=== PATIENT | male | born 1955 | race African-American/Black ===

== ENCOUNTER → 2016-09-06 | Outpatient (CLI) | payer BC ==
[~2016-09-06] MED LIST: GLUC10007 PO; LOSARTAN PO; ONDA4TAB4 PO; TRIA0.5O
[2016-09-06 15:25] LABS: ISTAT CREATININE 1.3 mg/dl (0.6-1.3); ISTAT IONIZED CALCIUM 1.23 mmol/l (1.12-1.32)
[2016-09-06 15:26] LABS: ISTAT HEMOGLOBIN 13.3 g/dl (14.0-18.0)
--- NOTE | 2016-09-06 16:09 | DIAGNOSTIC IMAGING REPORT ---
ABDOMINAL MRI WITH AND WITHOUT INTRAVENOUS CONTRAST HISTORY: Hepatocellular carcinoma. Follow-up. TECHNIQUE: Multiplanar multisequence MRI of the abdomen was performed both before and after the intravenous administration of 6.9 cc of Gadavist. COMPARISON STUDY: Abdominal MRI 05/24/2016. FINDINGS: No enhancing hepatic lesions. Small focal defect within segment 6 of the liver is likely due to postoperative change. The right kidney is surgically absent. Multiple left renal cysts are again noted. Dominant cyst within the lower pole measures 2.2 cm. Immediately superior to this cyst there is a 1.4 cm T2 hypointense lesion best seen on image 57 of 80 of the postcontrast sequences. This appears to demonstrate enhancement. Therefore, this is concerning for a small renal cell carcinoma. Stable splenic and left hepatic lobe cysts. Normal gallbladder. Pancreas divisum. No pancreatic masses. No retroperitoneal lymphadenopathy. Subtle 10 mm indeterminate lesion within the upper pole of the left kidney remains unchanged. IMPRESSION: 1. No hepatic lesions. 2. The right kidney is surgically absent. No soft tissue masses within the nephrectomy bed. 3. A 1.4 cm T2 hypointense lesion within the lower pole of the left kidney which appears to demonstrate enhancement. Therefore, this is concerning for a small renal cell carcinoma. Consider 3 month follow-up to evaluate for stability. 4. No change in the 1 cm indeterminate lesion within the upper pole of the left kidney. Electronically signed by: Jitendra Duffy M.D. 09/06/2016 4:07 PM Dictated Date/Time: 09/06/2016 3:48 PM
== END | disposition home or self-care (01) ==
LOC: C.MRI 12:45
PROVIDERS: ATTEND Nurse Practitioner
DX: C22.0 Liver cell carcinoma (principal); C64.1 Malignant neoplasm of right kidney, except renal pelvis

== ENCOUNTER → 2017-06-09 | Outpatient (CLI) | payer BC ==
[~2017-06-09] MED LIST changes: +GADOXETATE DISODIUM (NON-WT BASED PROCEDURE) IV PRN
--- NOTE | 2017-06-09 19:42 | DIAGNOSTIC IMAGING REPORT ---
MRI LIVER COMBO CLINICAL HISTORY: Hepatocellular carcinoma. Renal cell carcinoma. COMPARISON STUDY: MRI of the abdomen September 06, 2016. TECHNIQUE: Utilizing a 1.5 Patty magnet and dedicated coil, multiplanar, multiecho imaging of the abdomen was performed pre and postcontrast administration. Post contrast imaging was performed utilizing dynamic enhancement. Injection of 10 cc of Eovist IV was uneventful. FINDINGS: No suspicious hepatic lesions are present. An 8 mm lateral segment hepatic cyst is unchanged. No enhancing hepatic lesions are present. The postoperative appearance of the liver is unchanged. A splenic cyst is unchanged. There is no biliary or pancreatic ductal dilatation. No peripancreatic infiltration. No gallstones are identified. The patient is status post right nephrectomy. The right nephrectomy bed is within normal limits. There is no abdominal ascites. Multiple T2 hyperintense nonenhancing left renal lesions are consistent with cysts. This exam is compromised by motion artifact. However, a 1.3 cm lesion within the upper pole the left kidney shown on axial image 37 of 88 is similar to prior imaging studies. The previously described enhancing lesion within the lower pole of the left kidney is suboptimally assessed on this exam and evaluation for enhancement is difficult on this study. However, this lesion has increased in size and now measures approximately 2 cm. This is suspicious for renal cell carcinoma. This lesion is immediately adjacent to a renal cyst. No additional suspicious renal lesions are present. IMPRESSION: 1. Moderate increase in size of a 2 cm lesion within the lower pole of the left kidney. This lesion is suspicious for renal cell carcinoma, as described above. 2. No hepatic lesions identified. 3. Status post right nephrectomy. No abnormality within the right nephrectomy bed. 4. No significant change in the indeterminate 1.3 cm lesion within the upper pole of the left kidney. Electronically signed by: Lamonte Jacob M.D. 06/09/2017 7:40 PM Dictated Date/Time: 06/09/2017 4:34 PM
== END | disposition home or self-care (01) ==
LOC: C.MRI 14:36
PROVIDERS: ATTEND Internal Medicine Hematology & Oncology
DX: C22.0 Liver cell carcinoma (principal); N28.9 Disorder of kidney and ureter, unspecified; Z90.5 Acquired absence of kidney

== ENCOUNTER 2018-10-23 08:48 | Inpatient (IN) ==
--- NOTE | 2018-10-05 11:02 | Anesthesiology Consultation ---
Date of Service October 05, 2018 Assessment & Plan (1) Encounter for pre-operative examination: Chart Review Chart Review: Acceptable Risk for Surgery and Patient seen in Pre Admission Testing Teaching & Discussion Instructed NPO after midnight before surgery, except medications with 15 cc of water. Medication instructions provided according to the [facility] guidelines. History Surgery Operation Date: 10/23/18 10:20 Proposed Procedures p Left Robotic Assisted Partial Laparoscopic Nephrectomy - Paras Rene MD Height/Weight Height: 5 ft 9 in Weight: 72.2 kg Allergies Allergy/AdvReac Type Severity Reaction Status Date / Time Iodinated Contrast- Oral and Allergy Unknown Hives, Verified 10/05/18 10:20 IV Dye Itchy x1 week after Medications Home Medications Medication Instructions Recorded Confirmed Last Taken amlodipine 10 mg PO QAM 10/05/18 10/05/18 Unknown loratadine [Claritin] 10 mg PO DAILY PRN 10/05/18 10/05/18 Unknown losartan 100 mg PO QAM 10/05/18 10/05/18 Unknown Past Medical History Medical History Cardiac murmur As a teen. No murmur noted on exam at [facility]. History of liver cancer PT HAD SURGERY WITH RESECTION OF SMALL PORTION OF LIVER IN 2013. PT TOOK ORAL CHEMO. Hypertension Kidney mass Previously had on R kidney, s/p R nephrectomy. Now with mass on L kidney. Sleep apnea NO DEVICE -- WAS TOLD NOT SEVERE ENOUGH TO REQUIRE DEVICE Exercise / Class Metabolic Activity 1 > 8 Run/Swim/Ski/Tennis Past Surgical History Surgical History History of arthroscopy RT SHOULDER REPAIR History of colonoscopy History of esophagogastroduodenoscopy (EGD) History of excision of mass From liver, 2013. History of nephrectomy, right Done for R kidney mass--during this surgery, liver cancer discovered. History of tonsillectomy Past Anesthesia History No Hx of Anesthesia Complications and No Family Hx of Anesthesia Complications R nephrectomy 2013 @ [facility]: MAC 3, ETT 8.0. Grade view II. No issues noted on record. History of PONV No Hx of PONV and Hx of Motion Sickness Social History Smoking Status: Current every day smoker tobacco type: cigarettes Smoking cigarettes per day: 1 CIGARETTE PER DAY FOR PAST 7-8 YEARS Do You Dip or Chew Tobacco: No Hx Alcohol Use: Yes alcohol intake frequency: a few times a month Alcohol Intake Frequency Comment: OCC. SOCIAL DRINK Hx Substance Use: No substance use type: does not use Review of Systems Pt denies any recent chest pain, shortness of breath, palpitations, cough, fever. URI a few months ago, has had residual occ mild cough and now with seasonal allergies/congestion. Physical Exam Vital Signs BP: 146/78 P: 71bpm SPO2: 97% RA T: 98.2 F R: 18 ENMT Mouth: + chipped teeth; no dental restorations and no loose teeth Thyromental Distance: > or= 3.5 Finger Breadths (3.5) Mallampati Class: II Mouth / Teeth: 1. Broken/missing Neck normal visual inspection; neck extension not limited Respiratory normal respiratory effort Auscultation: lungs clear to auscultation bilaterally Cardiovascular Rate/Rhythm: regular rate and regular rhythm Heart Sounds: no murmur Vessels: no carotid bruit Extremities: no edema Testing Electrocardiogram Date: 10/05/18 Findings: + NSR @ (77) Possible LAE. Left axis deviation. NSTWA. Chest X-Ray Date: 10/05/18 FINDINGS: Small linear scarlike densities at the left lung base. The lungs are otherwise clear. The heart is normal in size. No pleural effusions. No pneumothorax. IMPRESSION: No acute process. Laboratory Results 10/05/18 11:13 10/05/18 11:13 Blood Type B Positive 10/05/18 11:13 Antibody Screen NEGATIVE 10/05/18 11:13 Urine Color Yellow 10/05/18 11:13 Urine Appearance Clear (Clear) 10/05/18 11:13 Urine pH 6.5 (4.5-7.5) 10/05/18 11:13 Ur Specific Cullen 1.022 (1.000-1.030) 10/05/18 11:13 Urine Protein Negative (Negative) 10/05/18 11:13 Urine Glucose (UA) Negative (Negative) 10/05/18 11:13 Urine Ketones Negative (Negative) 10/05/18 11:13 Urine Nitrite Negative (Negative) 10/05/18 11:13 Ur Leukocyte Esterase Negative (Negative) 10/05/18 11:13 10/05/18 11:13 Urine Culture - Final Urine,Clean Catch No growth - less than 1,000 colonies/mL.
--- NOTE | 2018-10-05 11:03 | PAT Medication Instructions ---
Medication Instructions Date of Service October 05, 2018 Home Medications amlodipine 10 mg PO QAM loratadine [Claritin] 10 mg PO DAILY PRN losartan 100 mg PO QAM DO NOT take the morning of surgery loratadine [Claritin] 10 mg PO DAILY PRN losartan 100 mg PO QAM Take morning of surgery With a small sip of water, OTHERWISE NOTHING TO EAT OR DRINK AFTER MIDNIGHT: amlodipine 10 mg PO QAM Take evening before surgery loratadine [Claritin] 10 mg PO DAILY PRN (if needed) Other Notes If you have any questions please call us at [phone] or [phone] or [phone] or [phone]
[2018-10-05 11:52] LABS: Appearance Urine Clear (Clear); Bilirubin Urine Negative (Negative); Blood Urine Negative (Negative); Color Urine Yellow; Glucose Urine UA Negative (Negative); Ketones Urine Negative (Negative); Leukocyte Esterase Urine Negative (Negative); Nitrite Urine Negative (Negative); Protein Urine Negative (Negative); Specific Gravity Urine 1.022 (1.000-1.030); Urobilinogen Urine Negative (Negative); pH Urine 6.5 (4.5-7.5)
[2018-10-05 11:53] LABS: Basophils # (auto) 0.03 K/uL (0-0.2); Basophils % (auto) 0.7 %; Eosinophils % (auto) 2.5 %; Hemoglobin 14.6 g/dL (14.0-18.0); Lymphocytes # (auto) 1.75 K/uL (1.2-3.4); Lymphocytes % (auto) 42.9 %; Mean Corpuscular Volume 84.5 fL (80-100); Mean Platelet Volume 9.7 fL (7.4-10.4); Monocytes # (auto) 0.48 K/uL (0.11-0.59); Monocytes % (auto) 11.8 %; Neutrophils # (auto) 1.72 K/uL (1.4-6.5); Neutrophils % (auto) 42.1 %; Platelet Count 276 K/uL (130-400); RDW Coefficient of Variation 14.3 % (11.5-14.5); RDW Standard Deviation 44.7 fL (36.4-46.3); Red Blood Count 5.09 M/uL (4.7-6.1); White Blood Count 4.08 K/uL (4.8-10.8)
--- NOTE | 2018-10-05 12:06 | XRay Report ---
XR chest Pre-admission PA/Lat HISTORY: Preop. COMPARISON: Chest 08/31/2013. FINDINGS: Small linear scarlike densities at the left lung base. The lungs are otherwise clear. The h eart is normal in size. No pleural effusions. No pneumothorax. IMPRESSION: No acute process. Electronically signed by: Jitendra Duffy M.D. 10/05/2018 12:05 PM
[2018-10-05 12:23] LABS: BUN Creatinine Ratio 13.6 (10-20); Calcium 9.4 mg/dl (8.5-10.1); Creatinine Clr Calc Pharmacy 52.5 ml/min; Est GFR (African American) 58.9; Est GFR (Non-African American) 50.8; Potassium 5.1 mmol/L (3.5-5.1)
[~2018-10-23 08:48] MED LIST changes: +ACETAMINOPHEN 1000 MG/100 ML IV IV ONE; +ALBUMIN HUMAN 5% 12.5 GM/250 ML VIAL IV ONE; +CEFAZOLIN 2000MG 2,000 MG/15 ML SYR IV SCH; -GADOXETATE DISODIUM (NON-WT BASED PROCEDURE) IV PRN; -GLUC10007 PO; -LOSARTAN PO; +LR 500ML BOLUS, THEN 15ML/HR IV SCH; +MANNITOL 25% 12.5 GM/50 ML VIAL IV ONE; -ONDA4TAB4 PO; -TRIA0.5O
--- OUTSIDE RECORDS SUMMARY | 2018-10-23 08:51 | External Medical Summary | Continuity of Care Document ---
:1955 Author Name Aubree Akins, Provider Address Unavailable Unavailable , Care Team Providers Name Role Phone Edgard Akins, Paras Venegas Unavailable [email or web address] [email or web address] M.[email or web address]. Unavailable [email or web address] Josh DURÁN Unavailable Unavailable Unavailable Unavailable Unavailable Problems Renal cell carcinoma (189.0) (C64.9) Left renal mass (593.9) (N28.89) Hepatocellular carcinoma (155.0) (C22.0) CKD (chronic kidney disease) stage 3, GFR 30-59 ml/min (585. 3) (N18.3) Hypertension (401.9) (I10) BPH with obstruction/lower urinary tract symptoms (600.01) ( N40.1) Abdominal MRI Liver Mass Lesion (573.8) Gross hematuria (599.71) (R31.0) Allergies and Adverse Reactions Iodinated Contrast Media (Allergy) Medications amLODIPine Besylate 10 MG Oral Tablet; TAKE 1 TABLET D AILY. Mable Rene I. Quantity: 30 Refills: 6 Losartan Potassium 100 MG Oral Tablet; TAKE 1 TABLET DAILY. Quantity: 90 Refills: 3 Tamsulosin HCl - 0.4 MG Oral Capsule; Take one capsule once daily at bedtime. Mable Rene I. Start: 29-Jun-2017 Quantity: 90 Refills: 3 Procedures CBC No Diff Date: 03-Sep-2018 Renal Panel Date: 03-Sep-2018 PTH, Intact Date: 03-Sep-2018 History of Hip Surgery Status: Completed History of Colonoscopy (Fiberoptic) Stat us: Completed History of Kidney Surgery Laparoscopic Radical Status: Completed Nephrectomy History of Partial Hepatectomy Status: C ompleted Immunizations Immunizations not documented Family History Unknown Family Member Family history of Hypertension (V17.49) Status: Active Comments: Family History Social History - Smoking Status Current every day smoker Plan of Treatment Planned Encounters Appointment; Davina Gore M.D. Start: 06-Mar-2019 14:45 R equest Planned Observations Planned Goals not documented Results X-Ray Chest Preadm Testing Laboratory: [facility] [address] [place] 05-Oct-2018 12:02 X-Ray Chest Preadm Testing (CXRPRE) Tiarra rodriguez [facility], [place] [phone] XRay Report Patient: BURCH Admit Date: 9 MR#: [id number] Address1: [address] A cct ID:[id number] Address2: Date: 1955 [facility] Zip: [place] [address] Age: 63 Location: [facility] Sex: M Room/Bed: Att Phy: Jt Rene MD, Urology Diagn osis: Left Renal Mass, Esthela itary Kidney Shayy Phy: Salvador Durán D.OLois Service Date: 10/05/18 Fam Phy: Int erpreting Phy: Jitendra sevilla MD Admit Phy: Ordering Phy: Paras Rene MD, Uro logy cc: XR chest Pre-admission PA/Lat HISTORY: Preop. COMPARISON: Chest 08/31/2013. FINDINGS: Small linear scarlike densities at the l eft lung base. The lungs are otherwise clear. Theheart is normal in size. No pleural effusions. No pneumotho rax. IMPRESSION: No acute process. Electronically signed by: Jitendra be M.D. 10/05/2018 12:05 PM Dictated: 08/21 1202 Transcribed: 10/05/18 1202 Urine Culture 05-Oct-2018 11:13 URINE CULTURE CATH ORDERED PROCEDURE : Urine Culture; Speciment : Urine,Clean Catch Urine Culture : No growth - less than 1,0 00 colonies/mL. Encounters Appointment; Paras Rene M.D. 23-Oct-2018 10:00 Encounter Diagnosis: Problem not documented Appointment; Adal Smalls M.D. 23-Oct-2018 10:00 Encounter Diagnosis: Problem not documented Appointment; Mellissa Cameron CRNP 23-Oct-2018 10:00 Encounter Diagnosis: Problem not documented Appointment; Mellissa Cameron CRNP 09-Oct-2018 11:00 Encounter Diagnosis: Problem not documented Appointment; Paras Rene M.D. 09-Oct-2018 11:00 Encounter Diagnosis: Problem not documented Appointment; Paras Rene M.D. 17-Sep-2018 15:50 Encounter Diagnosis: Problem not documented Appointment; Davina Gore M.D. 03-Sep-2018 14:45 Encounter Diagnosis: Problem not documented Appointment; Paras Rene M.D. 16-Jul-2018 15:50 Encounter Diagnosis: Problem not documented Appointment; Davina Gore M.D. 12-Jul-2018 12:30 Encounter Diagnosis: Problem not documented Appointment; Paras Rene M.D. 14-May-2018 14:00 Encounter Diagnosis: Problem not documented Appointment; Paras Rene M.D. 13-Nov-2017 14:00 Encounter Diagnosis: Problem not documented Appointment; Paras Rene M.D. 11-Sep-2017 11:00 Encounter Diagnosis: Problem not documented Appointment; Paras Rene M.D. 29-Jun-2017 16:00 Encounter Diagnosis: Problem not documented Appointment; Davina Gore M.D. 06-Mar-2019 14:45 Encounter Diagnosis: Problem not documented
--- NOTE | 2018-10-23 09:08 | History & Physical Bridge Note ---
Date of Service October 23, 2018 History & Physical Bridge Note I have examined the patient, reviewed the History & Physical and in the interval since the performance of the History & Physical I have noted the following changes of clinical significance: no changes noted
[2018-10-23] MEDS ORDERED: ONDANSETRON INJ 2 MG/ML 2 ML VIAL IV PRN ×2 (10:29→17:13)
[2018-10-23] MEDS ORDERED: DEXAMETHASONE SOD INJ 4 MG/ML VIAL IV PRN (10:29)
[2018-10-23] MEDS ORDERED: ePHEDrine sulfate 50 MG/ML AMP IV PRN (10:29)
[2018-10-23] MEDS ORDERED: fentaNYL citrate 100 MCG/2 ML VIAL IV PRN (10:29)
[2018-10-23] MEDS ORDERED: HYDROmorphone INJ 2 MG/ML SYR/VIAL IV PRN (10:29)
[2018-10-23] MEDS ORDERED: ATROPINE SULFATE 0.1 MG/ML 10ML SYR IV PRN (10:29)
[2018-10-23] MEDS ORDERED: BUPIVACAINE 0.5 % 5 MG/1 ML MPF 30ML VIAL ONE (11:00)
[2018-10-23] MEDS ORDERED: MIDAZOLAM HCL 1 MG/ML 2ML VIAL ONE (11:12)
[2018-10-23] MEDS ORDERED: fentaNYL citrate 100 MCG/2 ML VIAL ONE ×2 (11:12→15:38)
[2018-10-23] MEDS ORDERED: HYDROmorphone INJ 2 MG/ML SYR/VIAL ONE (12:11)
[2018-10-23] MEDS ORDERED: PROPOFOL IV EMULSION 10 MG/ML 20 ML VIAL IV ONE (13:37)
[2018-10-23] MEDS ORDERED: CISATRACURIUM BESYLATE IV SOLN 2 MG/ML 10 ML VIAL IV ONE (13:37)
[2018-10-23] MEDS ORDERED: LIDOCAINE HCL 2% 2 ML VIAL/AMP(20MG/ML) INFIL ONE (13:37)
[2018-10-23] MEDS ORDERED: ePHEDrine sulfate 50 MG/ML SYR ONE (13:37)
[2018-10-23] MEDS ORDERED: PHENYLEPHRINE 100MCG/ML 5ML SYR ONE (13:37)
[2018-10-23] MEDS ORDERED: ONDANSETRON INJ 2 MG/ML 2 ML VIAL ONE (13:38)
[2018-10-23] MEDS ORDERED: LABETALOL HCL IV 5 MG/ML 20ML IV ONE (13:38)
[2018-10-23] MEDS ORDERED: ESMOLOL HCL INJ 10 MG/ML 10ML VIAL IV ONE (13:38)
[2018-10-23] MEDS ORDERED: DEXAMETHASONE SOD INJ 4 MG/ML VIAL ONE (13:38)
[2018-10-23] MEDS ORDERED: BACITRACIN INJ 50,000 UNIT VIAL ONE ×2 (14:12→14:14)
--- NOTE | 2018-10-23 15:35 | Operative Report ---
Post Operative Report Pre & Post Diagnosis Operation Date: 10/23/18 10:50 Pre-Op Diagnosis: Left Renal Mass, Solitary Kidney Post-Op Diagnosis: Left Renal Mass, Solitary Kidney Procedure Operation Date: 10/23/18 10:50 Actual Procedures p Robotic Assisted Laparoscopic Left Partial Nephrectomy(Left) - Paras Rene MD Surgeon Paras Rene MD Stone Lathe Operator C Serina RAMAN, Ross GUTIERREZ Estimated Blood Loss 100 Findings Consistent with Post-Op Diagnosis Specimens Left renal mass, fat overlying tumor Description of Procedure Left robotic partial nephrectomy I attest to the content of the Intraoperative Record and any orders documented therein. Any exceptions are noted below.
[2018-10-23] MEDS ORDERED: GELATIN SPONGE SZ 100 EXT PRN (15:53)
[2018-10-23] MEDS ORDERED: MANNITOL 25% 12.5 GM/50 ML VIAL IV STA ×2 (15:55→15:56)
[2018-10-23] MEDS ORDERED: SURGICEL ABSORB HEMOSTAT 2IN X 14IN TOP ONE (15:58)
[2018-10-23] MEDS ORDERED: TISSEEL FIBRIN SEALANT 10ML TOP ONE (15:58)
[2018-10-23 16:08] LABS: Basophils # (auto) 0.02 K/uL (0-0.2); Basophils % (auto) 0.2 %; Eosinophils # (auto) 0.01 K/uL (0-0.5); Eosinophils % (auto) 0.1 %; Hematocrit (blood only) 39.7 % (42-52); Hemoglobin 14.1 g/dL (14.0-18.0); Immature Granulocytes # (auto) 0.01 K/uL (0.00-0.02); Immature Granulocytes % (auto) 0.1 %; Lymphocytes # (auto) 0.94 K/uL (1.2-3.4); Lymphocytes % (auto) 9.8 %; Mean Corpuscular Volume 81.4 fL (80-100); Mean Platelet Volume 8.9 fL (7.4-10.4); Monocytes # (auto) 0.15 K/uL (0.11-0.59); Monocytes % (auto) 1.6 %; Neutrophils # (auto) 8.43 K/uL (1.4-6.5); Neutrophils % (auto) 88.2 %; Platelet Count 225 K/uL (130-400); RDW Coefficient of Variation 13.8 % (11.5-14.5); RDW Standard Deviation 41.3 fL (36.4-46.3); Red Blood Count 4.88 M/uL (4.7-6.1); White Blood Count 9.56 K/uL (4.8-10.8)
[2018-10-23 16:29] LABS: BUN Creatinine Ratio 9.2 (10-20); Calcium 8.1 mg/dl (8.5-10.1); Creatinine Clr Calc Pharmacy 43.8 ml/min; Est GFR (African American) 48.3; Est GFR (Non-African American) 41.7; Potassium 3.8 mmol/L (3.5-5.1)
--- NOTE | 2018-10-23 16:41 | Anesthesiology Progress Note ---
Date of Service October 23, 2018 Anesthesia Post Procedure Vital Signs Vital Signs: Temp Pulse Pulse Pulse Resp BP BP 10/23/18 16:35 36.3 C L 10/23/18 16:30 85 16 10/23/18 16:25 87 21 133/77 10/23/18 16:20 86 15 146/88 H 10/23/18 16:15 88 14 146/91 H 10/23/18 16:10 93 H 13 145/84 H 10/23/18 16:05 93 H 12 149/85 H 10/23/18 16:01 84 12 10/23/18 16:00 98 H 14 10/23/18 15:55 93 H 13 146/74 H 10/23/18 15:50 96 H 14 136/86 10/23/18 15:45 117 H 16 155/90 H 10/23/18 15:43 93 H 14 10/23/18 15:42 91 H 10 L 132/86 10/23/18 15:41 36.4 C L 93 H 10 L 132/86 10/23/18 09:26 36.7 C 63 18 146/99 H Pulse Ox 10/23/18 16:35 100 10/23/18 16:30 100 10/23/18 16:25 100 10/23/18 16:20 100 10/23/18 16:15 100 10/23/18 16:10 100 10/23/18 16:05 100 10/23/18 16:01 100 10/23/18 16:00 100 10/23/18 15:55 100 10/23/18 15:50 100 10/23/18 15:45 95 10/23/18 15:43 97 10/23/18 15:42 98 10/23/18 15:41 97 10/23/18 09:26 99 Pain Intensity Left Lower Abdomen: Pain Intensity: 0 Transfer of Care Handoff Completed per policy Notes Mental Status: alert / awake / arousable and participated in evaluation Patient Amnestic to Procedure: Yes Nausea / Vomiting: adequately controlled Pain: adequately controlled Airway Patency, RR, SpO2: stable & adequate BP & HR: stable & adequate Hydration State: stable & adequate Anesthetic Complications: no major complications apparent
[2018-10-23 16:44] LABS: Mean Corpuscular Hgb Conc 35.5 g/dL (32-36)
[2018-10-23] MEDS ORDERED: HYDROmorphone INJ 1 MG/ML SYRINGE IV PRN ×2 (17:13)
[2018-10-23] MEDS: SODIUM CHLORIDE 0.9% 1000ML 1,000 ML IV SCH (17:41)
[2018-10-23] MEDS: OXYCODONE HCL IR 5 MG TAB (IMMEDIATE RELEASE) PO PRN ×2 (17:41→21:38)
--- NOTE | 2018-10-23 17:53 | Consultation ---
Date of Consultation October 23, 2018 Assessment & Plan (1) Left renal mass: s/p partial nephrectomy today by Dr Rene. Defer fluid management, pain control, DVT proph, disposition to primary urology team. Agree with AM cbc and bmp. Await pathology but will assume it is RCC until proven otherwise. Present on Admission?: Yes (2) Acute kidney injury: In the setting of baseline solitary kidney and partial left-sided nephrectomy today. Likely multifactorial. Continue IVF. Serial BMPs. Hold ARB. Avoid nephrotoxic agents. Present on Admission?: No (3) Hypertension: Hold ARB. Continue alpha roberto carlos. BPs acceptable post-op tonight. Present on Admission?: Yes (4) BPH (benign prostatic hyperplasia): Continue flomax. Mckeon in place. Defer mckeon management to urology. Present on Admission?: Yes (5) Tobacco use disorder: Patient reports <1/4 ppd. Defer on nicoderm for now unless patient requests it. Needs to quit smoking in light of b/l renal cell ca, h/o hepatocellular cancer, etc. 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 (6) DVT prophylaxis: Defer selection to urology. SCDs at minimum. Thank you for the consult. Will follow with you. History of Present Illness Requesting Physician: Paras Rene MD Reason for Consultation: post-op medical management Attending Physician: Paras Rene MD History of Present Illness 63yo male with h/o RCC of the right kidney 2014 s/p nephrectomy who presented today for scheduled left-sided robotically assisted partial nephrectomy for suspected RCC. I saw him post-op on the telemetry unit where he was resting comfortably. He had transient post-op nausea now resolved. Was able to tolerate his dinner. Denied any chest pain or dyspnea. Denied any vomiting. He reported mild abdominal discomfort from his surgery. Denied any personal history of CAD, WI, DVT, PE, or chronic lung disease. Allergies Allergy/AdvReac Type Severity Reaction Status Date / Time Iodinated Contrast- Oral and Allergy Unknown Hives, Verified 10/23/18 09:22 IV Dye Itchy x1 week after Home Medications Home Medications Medication Instructions Recorded Confirmed Type amlodipine 10 mg PO QAM 10/05/18 10/23/18 History losartan 100 mg PO QAM 10/05/18 10/23/18 History loratadine 10 mg PO DAILY PRN 10/23/18 10/23/18 History tamsulosin 0.4 mg PO DAILY 10/23/18 10/23/18 History Patient History Medical History BPH (benign prostatic hyperplasia) (Chronic) Hypertension (Chronic) Cardiac murmur As a teen. No murmur noted on exam at [facility]. History of liver cancer PT HAD SURGERY WITH RESECTION OF SMALL PORTION OF LIVER IN 2013. PT TOOK ORAL CHEMO. Sleep apnea NO DEVICE -- WAS TOLD NOT SEVERE ENOUGH TO REQUIRE DEVICE Kidney mass Previously had on R kidney, s/p R nephrectomy. Now with mass on L kidney. Surgical History History of arthroscopy RT SHOULDER REPAIR History of colonoscopy History of esophagogastroduodenoscopy (EGD) History of excision of mass From liver, 2013. History of nephrectomy, right Done for R kidney mass--during this surgery, liver cancer discovered. 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 Other Information That Helps Us Care for You: No Feels Safe at Home: Yes Safety Concerns: Feels Safe At This Time Smoking Status: Current every day smoker Tobacco Type: cigarettes Cigarettes Per Day: 1 CIGARETTE PER DAY FOR PAST 7-8 YEARS; 1ppd previously - started age 25yo Do You Dip or Chew Tobacco: No Second Hand Exposure: No Tobacco Cessation Education Requested by Patient: No Hx Alcohol Use: Yes Hx Substance Use: No Review of Systems Constitutional: + weight loss (5-6 pounds last few weeks); no fever and no chills Eyes: no worsening vision Ear, Nose, Mouth, Throat: no nasal congestion and no dysphagia Respiratory: no cough, no dyspnea and no dyspnea on exertion Cardiovascular: no chest pain Gastrointestinal: + abdominal pain and + nausea; no vomiting and no diarrhea/loose stools Genitourinary: + nocturia; no dysuria and no difficulty urinating Musculoskeletal: no back pain Integumentary: + rash (antecubital regions) Neurologic: no localized weakness Psychiatric: no depression and no anxiety Endocrine: + cold intolerance; no polydipsia and no polyphagia Hematologic / Lymphatic: no easy bleeding Physical Exam Constitutional: well developed, well nourished and average body habitus; no acute distress, not ill appearing and no altered mental status Eyes: PERRL ENMT: external ear and nose normal, oropharynx normal Neck: trachea midline, no thyromegaly Respiratory: normal respiratory effort, lungs clear to auscultation Cardiovascular: Rate/Rhythm: regular rate and regular rhythm Heart Sounds: normal S1, normal S2 and + murmur (1/6 RUSB/LUSB) Vessels: posterior tibial pulses present and dorsalis pedis pulses present; no JVD Gastrointestinal (Abdomen): Inspection/Auscultation: + abdomen distended (mild) and normal bowel sounds (decreased) Percussion/Palpation: + abdomen tender (incisions); no guarding, abdomen not rigid and no hepatosplenomegaly Musculoskeletal: Head/Neck/Chest: normocephalic Extremities: strength 5/5 throughout Skin: dressings intact abdominal wall; incisions clean Neurologic: deep tendon reflexes 2+ bilaterally and moves all extremities; no focal motor deficits Psychiatric: A+Ox3, euthymic affect Genitourinary: mckeon in place Lymphatic: no cervical lymphadenopathy Results & Data Vital Signs (Past 12 Hours) Vital Signs Temp Pulse Pulse Pulse Resp BP BP 10/23/18 16:50 86 14 10/23/18 16:45 83 14 143/86 H 10/23/18 16:41 86 16 159/74 H 10/23/18 16:40 88 15 10/23/18 16:35 36.3 C L 87 14 150/85 H 10/23/18 16:30 85 16 10/23/18 16:25 87 21 133/77 10/23/18 16:20 86 15 146/88 H 10/23/18 16:15 88 14 146/91 H 10/23/18 16:10 93 H 13 145/84 H 10/23/18 16:05 93 H 12 149/85 H 10/23/18 16:01 84 12 10/23/18 16:00 98 H 14 10/23/18 15:55 93 H 13 146/74 H 10/23/18 15:50 96 H 14 136/86 10/23/18 15:45 117 H 16 155/90 H 10/23/18 15:43 93 H 14 10/23/18 15:42 91 H 10 L 132/86 10/23/18 15:41 36.4 C L 93 H 10 L 132/86 10/23/18 09:26 36.7 C 63 18 146/99 H Pulse Ox 10/23/18 16:50 99 10/23/18 16:45 99 10/23/18 16:41 100 10/23/18 16:40 100 10/23/18 16:35 100 10/23/18 16:30 100 10/23/18 16:25 100 10/23/18 16:20 100 10/23/18 16:15 100 10/23/18 16:10 100 10/23/18 16:05 100 10/23/18 16:01 100 10/23/18 16:00 100 10/23/18 15:55 100 10/23/18 15:50 100 10/23/18 15:45 95 10/23/18 15:43 97 10/23/18 15:42 98 10/23/18 15:41 97 10/23/18 09:26 99 Laboratory Results Laboratory Results - last 24 hr 10/23/18 10/23/18 10/23/18 09:08 09:08 16:00 WBC 9.56 RBC 4.88 Hgb 14.1 Hct 39.7 L MCV 81.4 MCH 28.9 MCHC 35.5 RDW Std Deviation 41.3 RDW Coeff of Samantha 13.8 Plt Count 225 MPV 8.9 Immature Gran % (Auto) 0.1 Neut % (Auto) 88.2 Lymph % (Auto) 9.8 Williamson % (Auto) 1.6 Eos % (Auto) 0.1 Baso % (Auto) 0.2 Immature Gran # (Auto) 0.01 Neut # (Auto) 8.43 H Lymph # (Auto) 0.94 L Williamson # (Auto) 0.15 Eos # (Auto) 0.01 Baso # (Auto) 0.02 Sodium Potassium Chloride Carbon Dioxide Anion Gap BUN Creatinine Est Cr Clr Drug Dosing Est GFR ( Amer) Est GFR (Non-Af Amer) BUN/Creatinine Ratio Glucose Calcium Hepatitis C Ab Screen Neg Blood Type B Positive Antibody Screen NEGATIVE Crossmatch See Detail 10/23/18 16:00 WBC RBC Hgb Hct MCV MCH MCHC RDW Std Deviation RDW Coeff of Samantha Plt Count MPV Immature Gran % (Auto) Neut % (Auto) Lymph % (Auto) Williamson % (Auto) Eos % (Auto) Baso % (Auto) Immature Gran # (Auto) Neut # (Auto) Lymph # (Auto) Williamson # (Auto) Eos # (Auto) Baso # (Auto) Sodium 136 Potassium 3.8 Chloride 105 Carbon Dioxide 24 Anion Gap 7.0 BUN 16 Creatinine 1.72 H Est Cr Clr Drug Dosing 43.8 Est GFR ( Amer) 48.3 Est GFR (Non-Af Amer) 41.7 BUN/Creatinine Ratio 9.2 L Glucose 140 H Calcium 8.1 L Hepatitis C Ab Screen Blood Type Antibody Screen Crossmatch Diagnostic Findings recent pre-op chest x-ray -- wnl, no infiltrates. (1) Hypertension Hypertension type: essential hypertension Qualified Code(s): I10 - Essential (primary) hypertension (2) BPH (benign prostatic hyperplasia) Lower urinary tract symptom presence: symptoms present Lower urinary tract symptom detail: nocturia Qualified Code(s): N40.1 - Benign prostatic hyperplasia with lower urinary tract symptoms; R35.1 - Nocturia
[2018-10-23] MEDS: ACETAMINOPHEN 1,000 MG/100 ML VIAL IV SCH (18:18)
[2018-10-23] MEDS: CEFAZOLIN 2000MG 2,000 MG/15 ML SYR IV SCH (20:04)
[2018-10-24] MEDS: ACETAMINOPHEN 1,000 MG/100 ML VIAL IV SCH ×3 (01:30→18:47)
[2018-10-24] MEDS: OXYCODONE HCL IR 5 MG TAB (IMMEDIATE RELEASE) PO PRN ×4 (01:34→23:41)
--- NOTE | 2018-10-24 01:58 | Operative Report ---
DATE OF OPERATION: 10/23/2018 PREOPERATIVE DIAGNOSIS: 2.6 cm left anterior renal mass in a solitary kidney. POSTOPERATIVE DIAGNOSIS: 2.6 cm left anterior renal mass in a solitary kidney. PROCEDURE: Robot-assisted laparoscopic left-sided partial nephrectomy. SURGEON: Paras Rene MD COMMERCIAL ATTACHE: Adal Smalls MD and BRENDA Villasenor. Assistants were present throughout the case for retraction, passage of the needles and instruments, exchange of robotic instruments, drain placement, suction, and general patient safety and positioning. ANESTHESIA: General anesthesia with endotracheal intubation plus local at port sites. ESTIMATED BLOOD LOSS: 100 mL. INTRAVENOUS FLUIDS: 2800 mL of crystalloid. SPECIMENS SENT TO PATHOLOGY: Left-sided renal tumor and fat overlying tumor. DRAINS LEFT IN PLACE: Include a Rey catheter to gravity drainage and a #10 flat JOB drain in the left lower quadrant. COMPLICATIONS: None. FINDINGS: Viable kidney with excellent closure after 9 minutes of cold ischemia time. Intracorporeal iced saline used for renal hypothermia. No evidence of collecting system violation after completion of the case. BRIEF HISTORY: Mr. Renteria is a pleasant 63-year-old -[place] male who is well known to myself. He is status post right-sided hand-assisted laparoscopic nephrectomy 5 years ago for renal cell carcinoma. Intraoperatively, a liver lesion was discovered and biopsied and found to contain hepatocellular carcinoma for which he underwent a partial hepatectomy. The patient has been disease free from both these disease processes until he was found to have a left-sided renal lesion in his solitary remaining kidney which has been growing over the course of time. A percutaneous renal biopsy was attempted but pathology was nonspecific. Unfortunately, the lesion is suspicious both in terms of its appearance on imaging and its growth over time for a metachronous renal cell carcinoma. The patient is being brought into the operating room today for resection of this lesion. Please see H&P for further details. Intravenous cephalosporins were provided for perioperative antibiotic coverage and SCDs used for DVT prophylaxis. Intravenous Tylenol was provided for perioperative analgesia as well. Informed consent reviewed with the patient and patient's family preoperatively today. DESCRIPTION OF PROCEDURE: The patient was properly identified and brought into the operative suite after identification of appropriate consent on the chart. General anesthesia with endotracheal intubation was initiated and the patient was prepped and draped in the standard fashion for this procedure. Full timeout procedure was followed. The patient was placed in a gentle left flank up position with flexion on the table and upper and lower body warmer was replaced. A 12 mm incision was made in the midclavicular line and abdomen was directly entered using a 0-degree laparoscope with a visual obturator. Abdomen was insufflated to 15 mmHg and surveyed. No evidence of any injury to the bowels or intra-abdominal structures was appreciated on placement of any of the ports. The patient was noted to have a severely distended bowel throughout the abdomen possibly consistent with poor bowel preparation. In any case, the bowel was circumnavigated throughout the case with no evidence of any injury, direct, thermal, or otherwise. Ports were placed including two 7-mm robotic ports and two 12-mm shipping assistant ports. The robot was brought in and docked and monopolar scissors were used to incise the white line of Toldt laterally from the pelvis to the lateral splenic attachments. This allowed access to the retroperitoneum where the patient's kidney was visualized. Dissection was carried out deeper within the pelvis and the ureter and gonadal vein were both identified. These were used to create lateral traction on the kidney and to allow for cephalad dissection up to the level of the hilum. Unfortunately, the gonadal vein provided significant limitations in terms of the ability to retract the kidney and was therefore sacrificed after clipping with Weck clips and dividing. Great care was taken to avoid any injury to the ureter throughout the case. Dissection was carried cephalad until the renal hilum was encountered. A single renal vein with a clipped gonadal vein and the adrenal vein was appreciated. This was circumscribed and skeletonized to allow for better identification of the hilar structures. A single renal artery was appreciated and skeletonized to allow for better vascular control. After this was complete, intraoperative ultrasound was used to define the location of the patient's renal mass. This was noted to be unchanged for the appearance on perioperative ultrasound and preoperative CT scan. The fat overlying the kidney was removed from the capsule of the kidney and sent as a separate pathologic specimen of fat overlying tumor at the end of the case. Renal tumor was visible as well as an inferior renal cyst in the expected location according to CT scan. Renal cyst was incised and drained to allow for access to the inferior most aspect of the patient's renal mass. The dissection was carried up to the level of the renal sinus fat where the tumor was present. After the tumor was well defined, 12.5 mg of mannitol were provided intravenously to allow for an osmotic diuresis. Chilled saline was used for approximately 10 minutes prior to vascular clamp to reduce the temperature of the kidney with resultant renal blanching. A single long curved bulldog was placed over the renal artery and the tumor was dissected free from its lateral and inferior attachments. Excellent hemostasis was appreciated throughout the clamp time and renal dissection. The renal mass was able to be excised from the kidney with no evidence of any violation of the tumor capsule or the collecting system of the kidney. After this was complete, a deep tissue closure was performed using a running 3-0 V-Loc suture over the vessels in the deepest aspect of the renal defect, which was anchored to the level of the capsule using Weck clips with a Lapra-Ty backer. After this was complete, interrupted sutures were used with Weck clip pledgets to allow for closure of the renal defect. After the defect was partially closed, the clamp was removed for a total of 9 minutes of cold ischemia time. Excellent hemostasis from the level of the renal defect was appreciated. Sutures were tightened as necessary and the defect was also reinforced with FloSeal tissue sealant and Surgicel. A layer of Tisseel was placed at the level of the renal capsule again with excellent hemostasis being appreciated. The Gerota's fascia was reapproximated with great care being taken to avoid any entrapment of the ureter. [place] were removed and sponge and instrument counts were noted to be correct. The patient's kidney was noted to revascularize well after removal of the arterial clamp. The vein was left unclamped throughout the case. After this was complete, the EndoCatch bag was placed via the lower most 12-mm shipping assistant port and the renal tumor and the fat overlying the tumor were both placed within the bag for retrieval at the end of the case. The inferior most robotic instrument was removed and a #10 JOB drain was brought in via this shipping assistant port and placed overlying the medial aspect of the kidney. After this was complete, the robotic instruments were removed and the robot was dedocked and removed from the field. Trocars were removed and the specimen port was enlarged sufficiently to allow for easy passage of the specimen bag. All 12 mm ports were closed using 0 Vicryl sutures on the UR-6 needle. The fascia was closed at the level of the extraction port in a running fashion. A 2-0 silk was used to secure the JOB drain in place and 4-0 Monocryl followed by Dermabond was used at the level of the skin. Excess carbon dioxide gas was removed from the abdomen prior to completion of closure and flexion was reversed on the table. After this was complete, anesthesia was reversed and the patient was transferred to the recovery room in stable condition. FOLLOWUP CARE: The patient will be admitted to the floor for standard postoperative management. I attest to the content of the Intraoperative Record and any orders documented therein. Any exceptions are noted below. BURAK
[2018-10-24] MEDS: SODIUM CHLORIDE 0.9% 1000ML 1,000 ML IV SCH (03:29)
[2018-10-24] MEDS: CEFAZOLIN 2000MG 2,000 MG/15 ML SYR IV SCH (03:29)
[2018-10-24 07:11] LABS: Basophils # (auto) 0.01 K/uL (0-0.2); Basophils % (auto) 0.1 %; Hematocrit (blood only) 38.2 % (42-52); Hemoglobin 13.3 g/dL (14.0-18.0); Immature Granulocytes # (auto) 0.03 K/uL (0.00-0.02); Immature Granulocytes % (auto) 0.3 %; Lymphocytes # (auto) 1.65 K/uL (1.2-3.4); Lymphocytes % (auto) 18.3 %; Mean Corpuscular Hgb Conc 34.8 g/dL (32-36); Mean Corpuscular Volume 81.6 fL (80-100); Mean Platelet Volume 9.2 fL (7.4-10.4); Monocytes # (auto) 0.94 K/uL (0.11-0.59); Monocytes % (auto) 10.4 %; Neutrophils # (auto) 6.37 K/uL (1.4-6.5); Neutrophils % (auto) 70.9 %; Platelet Count 214 K/uL (130-400); RDW Coefficient of Variation 13.8 % (11.5-14.5); RDW Standard Deviation 41.3 fL (36.4-46.3); Red Blood Count 4.68 M/uL (4.7-6.1)
[2018-10-24 07:47] LABS: BUN Creatinine Ratio 9.4 (10-20); Calcium 8.8 mg/dl (8.5-10.1); Creatinine Clr Calc Pharmacy 43.1 ml/min; Est GFR (African American) 47.6; Est GFR (Non-African American) 41.1
[2018-10-24] MEDS: AMLODIPINE BESYLATE 5 MG TAB PO SCH (07:50)
[2018-10-24] MEDS: TAMSULOSIN HCL 0.4 MG CAP PO SCH (07:50)
--- NOTE | 2018-10-24 08:31 | Urology Progress Note ---
Date of Service October 24, 2018 Assessment & Plan (1) Left renal mass: A/P 63 yo male POD#1 s/p L robotic partial nephrectomy. Doing quite well. Advance diet - full liquids in AM, can have soft mechanical for lunch and regular for dinner if well tolerated. Will HTIVF this PM if taking good PO. Ambulate in halls. VSS stable postop, good diuresis, Cr stabilized at ~1.7 so far, which would be excellent. Should be stable for transfer to med/surg. K noted to have increased to 5, close to baseline - will monitor. Await nephrology input. SEVERO mckeon today. Findings and care reviewed with patient who vocalizes good understanding of the treatment plan. Subjective 63 yo male POD#1 s/p L robotic partial nephrectomy on solitary kidney, 9 minutes of cool ischemia time. Patient reports he is "sore," pain controlled with PO meds. Taking clears, + appetite this AM. Hospitalist consult reviewed, nephrology consult pending. He denies further emesis, minimal activity so far, on telemetry overnight. Good diuresis since OR, urine clear, mild mckeon bother. Past notes and intraop findings reviewed. Review of Systems Constitutional: no fever and no chills Eyes: no diplopia Ear, Nose, Mouth, Throat: no ear trauma Respiratory: no hemoptysis Cardiovascular: no chest pain Gastrointestinal: + abdominal pain; no cramping Genitourinary: no hematuria Musculoskeletal: no deformity Integumentary: no acne, no boil and no rash Neurologic: no paralysis and no numbness Psychiatric: no hopelessness Endocrine: + fatigue Hematologic / Lymphatic: no unexplained weight loss Physical Exam Constitutional: WD/WN, vitals as above Eyes: eyes not dysmorphic ENMT: Ears: no external ear abnormality Neck: trachea midline; no anterior neck swelling Respiratory: no respiratory distress and does not use accessory muscles Cardiovascular: Vessels: radial pulses present Gastrointestinal (Abdomen): Inspection/Auscultation: abdomen not distended Percussion/Palpation: abdomen soft; abdomen nontender inc c/d/i with serosang drainage from JOB drain site and extraction port Musculoskeletal: Head/Neck/Chest: normocephalic and neck supple Skin: normal turgor Neurologic: awake; not obtunded Psychiatric: Orientation: oriented x 3 Lymphatic: no lymphadenopathy Results & Data Vital Signs (Past 12 Hours) Vital Signs Temp Pulse Resp BP Pulse Ox 10/24/18 03:52 36.6 C 78 17 137/81 95 10/23/18 23:54 36.5 C 74 17 129/76 95 Laboratory Results Laboratory Results - last 48 hr 10/23/18 10/23/18 10/23/18 09:08 09:08 16:00 WBC 9.56 RBC 4.88 Hgb 14.1 Hct 39.7 L MCV 81.4 MCH 28.9 MCHC 35.5 RDW Std Deviation 41.3 RDW Coeff of Samantha 13.8 Plt Count 225 MPV 8.9 Immature Gran % (Auto) 0.1 Neut % (Auto) 88.2 Lymph % (Auto) 9.8 Arroyo % (Auto) 1.6 Eos % (Auto) 0.1 Baso % (Auto) 0.2 Immature Gran # (Auto) 0.01 Neut # (Auto) 8.43 H Lymph # (Auto) 0.94 L Arroyo # (Auto) 0.15 Eos # (Auto) 0.01 Baso # (Auto) 0.02 Sodium Potassium Chloride Carbon Dioxide Anion Gap BUN Creatinine Est Cr Clr Drug Dosing Est GFR ( Amer) Est GFR (Non-Af Amer) BUN/Creatinine Ratio Glucose Calcium Magnesium Hepatitis C Ab Screen Neg Blood Type B Positive Antibody Screen NEGATIVE Crossmatch See Detail 10/23/18 10/24/18 10/24/18 16:00 07:01 07:01 WBC 9.00 RBC 4.68 L Hgb 13.3 L Hct 38.2 L MCV 81.6 MCH 28.4 MCHC 34.8 RDW Std Deviation 41.3 RDW Coeff of Samantha 13.8 Plt Count 214 MPV 9.2 Immature Gran % (Auto) 0.3 Neut % (Auto) 70.9 Lymph % (Auto) 18.3 Arroyo % (Auto) 10.4 Eos % (Auto) 0.0 Baso % (Auto) 0.1 Immature Gran # (Auto) 0.03 H Neut # (Auto) 6.37 Lymph # (Auto) 1.65 Arroyo # (Auto) 0.94 H Eos # (Auto) 0.00 Baso # (Auto) 0.01 Sodium 136 139 Potassium 3.8 5.0 D Chloride 105 109 H Carbon Dioxide 24 25 Anion Gap 7.0 6.0 BUN 16 16 Creatinine 1.72 H 1.74 H Est Cr Clr Drug Dosing 43.8 43.1 Est GFR ( Amer) 48.3 47.6 Est GFR (Non-Af Amer) 41.7 41.1 BUN/Creatinine Ratio 9.2 L 9.4 L Glucose 140 H 99 Calcium 8.1 L 8.8 Magnesium 2.0 Hepatitis C Ab Screen Blood Type Antibody Screen Crossmatch
--- NOTE | 2018-10-24 09:08 | Anesthesiology Progress Note ---
Date of Service October 24, 2018 Anesthesia Post Procedure Vital Signs Vital Signs: Temp Pulse Pulse Pulse Resp BP BP 10/24/18 08:00 36.5 C 73 17 111/73 10/24/18 03:52 36.6 C 78 17 137/81 10/23/18 23:54 36.5 C 74 17 129/76 10/23/18 19:43 36.7 C 89 18 145/74 H 10/23/18 17:43 36.3 C L 94 H 18 10/23/18 16:50 86 14 10/23/18 16:45 83 14 143/86 H 10/23/18 16:41 86 16 159/74 H 10/23/18 16:40 88 15 10/23/18 16:35 36.3 C L 87 14 150/85 H 10/23/18 16:30 85 16 10/23/18 16:25 87 21 133/77 10/23/18 16:20 86 15 146/88 H 10/23/18 16:15 88 14 146/91 H 10/23/18 16:10 93 H 13 145/84 H 10/23/18 16:05 93 H 12 149/85 H 10/23/18 16:01 84 12 10/23/18 16:00 98 H 14 10/23/18 15:55 93 H 13 146/74 H 10/23/18 15:50 96 H 14 136/86 10/23/18 15:45 117 H 16 155/90 H 10/23/18 15:43 93 H 14 10/23/18 15:42 91 H 10 L 132/86 10/23/18 15:41 36.4 C L 93 H 10 L 10/23/18 09:26 36.7 C 63 18 BP Pulse Ox 10/24/18 08:00 96 10/24/18 03:52 95 10/23/18 23:54 95 10/23/18 19:43 94 10/23/18 17:43 158/96 H 94 10/23/18 16:50 99 10/23/18 16:45 99 10/23/18 16:41 100 10/23/18 16:40 100 10/23/18 16:35 100 10/23/18 16:30 100 10/23/18 16:25 100 10/23/18 16:20 100 10/23/18 16:15 100 10/23/18 16:10 100 10/23/18 16:05 100 10/23/18 16:01 100 10/23/18 16:00 100 10/23/18 15:55 100 10/23/18 15:50 100 10/23/18 15:45 95 10/23/18 15:43 97 10/23/18 15:42 98 10/23/18 15:41 132/86 97 10/23/18 09:26 146/99 H 99 Pain Intensity Left Lower Abdomen: Pain Intensity: 7 Notes Mental Status: alert / awake / arousable and participated in evaluation Patient Amnestic to Procedure: Yes Nausea / Vomiting: adequately controlled Pain: adequately controlled Airway Patency, RR, SpO2: stable & adequate BP & HR: stable & adequate Hydration State: stable & adequate Anesthetic Complications: no major complications apparent and Pt Satisfied with anesthetic care
[2018-10-24] MEDS: DOCUSATE SODIUM 100 MG CAP PO SCH ×2 (09:22→20:43)
--- NOTE | 2018-10-24 09:57 | Neurology Consultation ---
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 Prior to this surgery the creatinine was around 1.2-1.4. Postoperative day creatinine was 1.7 which stayed stable this morning. Electrolytes acceptable. Has been voiding normally. Currently otherwise asymptomatic, blood pressure and volume status acceptable. --continue to monitor renal function closely while recovering from partial nephrectomy. Creatinine may stay stable around 1.7-2 however need to monitor next few days. --keep well hydrated, avoid volume depletion, monitor urine output and if significantly net negative may need to give IV fluids and encourage p.o. intake --avoid nephrotoxic medications Will follow Thank you for allowing me to participate in your patient's care. It was a pleasure to see Jimbo (2) Renal mass, right: (3) Solitary right kidney: History of Present Illness Reason for Consultation: Acute kidney injury with CKD and solitary kidney. Attending Physician: Paras Rene MD History of Present Illness Jimbo Renteria is a 63-year-old gentleman with past medical history is significant for solitary left kidney, history of hepatocellular carcinoma and recent left renal mass admitted to the hospital for partial nephrectomy. For the consult was requested to manage Acute kidney injury week to chronic kidney disease. Electronic medical records including labs and imaging are reviewed detail during patient's Visit. Kierra has history of left nephrectomy for renal cell carcinoma 5 years ago. During surgery he was found to have a liver mass and eventually diagnosed with hepatocellular carcinoma which was treated and has been asymptomatic however over the last few months he was found to have a right renal mass which has been slowly increasing in size. Biopsy was benign however the mass was suspicious for malignancy and he was admitted electively for partial nephrectomy. Yesterday he had a right partial nephrectomy. Prior to nephrectomy in early October creatinine was 1.4. Postoperatively yesterday afternoon his creatinine was 1.7 which remained stable this morning. Electrolytes acceptable. Blood pressure seems to be well controlled. He is having decent urine output. In overall recovering from the surgery very well lately minimal pain. Started on clear liquid, has been tolerating okay. Currently he is otherwise asymptomatic. Allergies Allergy/AdvReac Type Severity Reaction Status Date / Time Iodinated Contrast- Oral and Allergy Unknown Hives, Verified 10/23/18 09:22 IV Dye Itchy x1 week after Home Medications Home Medications Medication Instructions Recorded Confirmed Type amlodipine 10 mg PO QAM 10/05/18 10/23/18 History losartan 100 mg PO QAM 10/05/18 10/23/18 History loratadine 10 mg PO DAILY PRN 10/23/18 10/23/18 History tamsulosin 0.4 mg PO DAILY 10/23/18 10/23/18 History Patient History Medical History BPH (benign prostatic hyperplasia) (Chronic) Hypertension (Chronic) Cardiac murmur As a teen. No murmur noted on exam at [facility]. History of liver cancer PT HAD SURGERY WITH RESECTION OF SMALL PORTION OF LIVER IN 2013. PT TOOK ORAL CHEMO. Sleep apnea NO DEVICE -- WAS TOLD NOT SEVERE ENOUGH TO REQUIRE DEVICE Kidney mass Previously had on R kidney, s/p R nephrectomy. Now with mass on L kidney. Surgical History History of arthroscopy RT SHOULDER REPAIR History of colonoscopy History of esophagogastroduodenoscopy (EGD) History of excision of mass From liver, 2013. History of nephrectomy, right Done for R kidney mass--during this surgery, liver cancer discovered. 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 Other Information That Helps Us Care for You: No Feels Safe at Home: Yes Safety Concerns: Feels Safe At This Time Smoking Status: Current every day smoker Tobacco Type: cigarettes Cigarettes Per Day: 1 CIGARETTE PER DAY FOR PAST 7-8 YEARS; 1ppd previously - started age 25yo Do You Dip or Chew Tobacco: No Second Hand Exposure: No Tobacco Cessation Education Requested by Patient: No Hx Alcohol Use: Yes Hx Substance Use: No Review of Systems Review of Systems: All systems reviewed & are unremarkable except as noted in HPI & below Physical Exam Physical Exam: GENERAL: Middle-aged male, AAA x 3, pleasant, healthy-appearing, not in any distress. HEENT: Atraumatic, normocephalic. NECK: Supple, no JVD, no carotid bruit appreciated. ENT: No sinus tenderness MOUTH and THROAT: Moist oral mucosa, RESPIRATORY: Normal breathing efforts, clear to auscultation bilaterally, no wheezes or rales. CARDIOVASCULAR: S1, S2 normal, rate rhythm regular. ABDOMEN: Soft, mild tenderness at the incision area, positive bowel sound. MUSCULOSKELETAL: No CVA tenderness. No joint swelling, erythema or tenderness. Normal range of motion. SKIN: No skin rash EXTREMITY: No lower extremity edema NEURO: No gross focal neurological deficit, speech fluent. PSYCHIATRY: Normal mood and judgment Results & Data Vital Signs (Past 12 Hours) Vital Signs Temp Pulse Resp BP Pulse Ox 10/24/18 08:00 36.5 C 73 17 111/73 96 10/24/18 03:52 36.6 C 78 17 137/81 95 10/23/18 23:54 36.5 C 74 17 129/76 95
--- NOTE | 2018-10-24 20:55 | Hospitalist Progress Note ---
Date of Service October 24, 2018 Assessment & Plan (1) Left renal mass: s/p partial nephrectomy by Dr Rene - POD #1. Defer fluid management, pain control, DVT proph, disposition to primary urology team. Await pathology but will assume it is RCC until proven otherwise. (2) Acute kidney injury: In the setting of baseline solitary kidney and partial left-sided nephrectomy. Nephrology now following. Daily BMP. Likely multifactorial. Defer fluid management to nephrology and urology. Hold ARB. Avoid nephrotoxic agents. (3) Hypertension: Hold ARB. Continue alpha roberto carlos. BPs remain acceptable. (4) BPH (benign prostatic hyperplasia): Continue flomax. (5) Tobacco use disorder: Patient reports <1/4 ppd. Needs to quit smoking in light of b/l renal cell ca, h/o hepatocellular cancer, etc. Custom Van Converter to quit. (6) DVT prophylaxis: Defer selection to urology. SCDs for now. Subjective patient resting comfortably while here. denies any passage of flatus, however. despite such no nausea/emesis and able to eat. ambulating. Review of Systems Constitutional: no fever Respiratory: no dyspnea and no dyspnea on exertion Cardiovascular: no chest pain Gastrointestinal: + bloating and + constipation; no nausea and no vomiting Physical Exam Constitutional: well developed and well nourished; no acute distress Respiratory: normal respiratory effort, lungs clear to auscultation Cardiovascular: RRR, no murmur, no edema Heart Sounds: normal S1 and normal S2 Vessels: posterior tibial pulses present and dorsalis pedis pulses present; no JVD Gastrointestinal (Abdomen): mildly distended; BS present but decreased; incisions clean; no HSM; no tenderness Psychiatric: A+Ox3, euthymic affect Results & Data Vital Signs (Past 12 Hours) Vital Signs Temp Pulse Resp BP Pulse Ox 10/24/18 15:40 37.1 C 74 16 143/82 H 97 10/24/18 11:10 36.5 C 73 16 130/81 92 Laboratory Results Laboratory Results - last 24 hr 10/23/18 10/24/18 10/24/18 09:08 07:01 07:01 WBC 9.00 RBC 4.68 L Hgb 13.3 L Hct 38.2 L MCV 81.6 MCH 28.4 MCHC 34.8 RDW Std Deviation 41.3 RDW Coeff of Samantha 13.8 Plt Count 214 MPV 9.2 Immature Gran % (Auto) 0.3 Neut % (Auto) 70.9 Lymph % (Auto) 18.3 [place] % (Auto) 10.4 Eos % (Auto) 0.0 Baso % (Auto) 0.1 Immature Gran # (Auto) 0.03 H Neut # (Auto) 6.37 Lymph # (Auto) 1.65 [place] # (Auto) 0.94 H Eos # (Auto) 0.00 Baso # (Auto) 0.01 Sodium 139 Potassium 5.0 D Chloride 109 H Carbon Dioxide 25 Anion Gap 6.0 BUN 16 Creatinine 1.74 H Est Cr Clr Drug Dosing 43.1 Est GFR ( Amer) 47.6 Est GFR (Non-Af Amer) 41.1 BUN/Creatinine Ratio 9.4 L Glucose 99 Calcium 8.8 Magnesium 2.0 Crossmatch See Detail (1) BPH (benign prostatic hyperplasia) Lower urinary tract symptom detail: nocturia Lower urinary tract symptom presence: symptoms present Qualified Code(s): N40.1 - Benign prostatic hyperplasia with lower urinary tract symptoms; R35.1 - Nocturia (2) Hypertension Hypertension type: essential hypertension Qualified Code(s): I10 - Essential (primary) hypertension
[2018-10-25] MEDS: ACETAMINOPHEN 1,000 MG/100 ML VIAL IV SCH ×2 (02:33→10:37)
[2018-10-25 06:21] LABS: Basophils # (auto) 0.02 K/uL (0-0.2); Basophils % (auto) 0.3 %; Eosinophils # (auto) 0.08 K/uL (0-0.5); Hematocrit (blood only) 36.8 % (42-52); Hemoglobin 12.8 g/dL (14.0-18.0); Immature Granulocytes # (auto) 0.03 K/uL (0.00-0.02); Immature Granulocytes % (auto) 0.4 %; Lymphocytes # (auto) 1.97 K/uL (1.2-3.4); Lymphocytes % (auto) 25.1 %; Mean Corpuscular Hgb Conc 34.8 g/dL (32-36); Mean Corpuscular Volume 81.8 fL (80-100); Mean Platelet Volume 9.3 fL (7.4-10.4); Monocytes # (auto) 0.88 K/uL (0.11-0.59); Monocytes % (auto) 11.2 %; Neutrophils # (auto) 4.88 K/uL (1.4-6.5); Platelet Count 192 K/uL (130-400); RDW Coefficient of Variation 13.8 % (11.5-14.5); RDW Standard Deviation 41.3 fL (36.4-46.3); White Blood Count 7.86 K/uL (4.8-10.8)
[2018-10-25 07:02] LABS: BUN Creatinine Ratio 8.2 (10-20); Calcium 8.9 mg/dl (8.5-10.1); Creatinine Clr Calc Pharmacy 51.1 ml/min; Est GFR (African American) 58.4; Est GFR (Non-African American) 50.4; Potassium 4.1 mmol/L (3.5-5.1)
--- NOTE | 2018-10-25 07:48 | Urology Progress Note ---
Date of Service October 25, 2018 Assessment & Plan (1) Left renal mass: A/P 63 yo male POD#2 s/p L robotic partial nephrectomy. Advance diet, regular diet. Continue ambulate in halls. VSS stable postop, good diuresis, Cr improved to 1.5, close to preop. K improved. Doing quite well. Anticipate DC home later today. Findings and care reviewed with patient who vocalizes good understanding of the treatment plan. Subjective 63 yo male POD#2 s/p L robotic partial nephrectomy. Pain controlled with oxycodone and Tylenol, ambulatory in hallways. Good appetite, denies f/c/n/v, full liquids last night, pending reg diet this AM. JOB output acceptable, no BM yet, in good spirits, no specific complaints save appropriate incisional pain. Review of Systems Constitutional: no fever and no chills Eyes: no diplopia Ear, Nose, Mouth, Throat: no ear trauma Respiratory: no cough and no hemoptysis Cardiovascular: no chest pain Gastrointestinal: + abdominal pain; no nausea and no vomiting Genitourinary: no hematuria Integumentary: no acne, no boil and no rash Neurologic: no gait abnormality, no paralysis and no numbness Psychiatric: no hopelessness Endocrine: + fatigue Physical Exam Constitutional: WD/WN, vitals as above Eyes: eyes not dysmorphic ENMT: Ears: no external ear abnormality Neck: trachea midline; no anterior neck swelling Respiratory: no respiratory distress and does not use accessory muscles Cardiovascular: Vessels: radial pulses present Gastrointestinal (Abdomen): Inspection/Auscultation: abdomen not distended Percussion/Palpation: abdomen soft; abdomen nontender Musculoskeletal: Head/Neck/Chest: normocephalic and neck supple Skin: normal turgor Neurologic: awake; not obtunded Psychiatric: Orientation: oriented x 3 Lymphatic: no lymphadenopathy Results & Data Vital Signs (Past 12 Hours) Vital Signs Temp Pulse Resp BP Pulse Ox 10/25/18 03:27 37.2 C 79 14 147/90 H 92 10/24/18 23:36 37.1 C 77 14 142/84 H 93 Laboratory Results Laboratory Results - last 48 hr 10/23/18 10/23/18 10/23/18 09:08 09:08 16:00 WBC 9.56 RBC 4.88 Hgb 14.1 Hct 39.7 L MCV 81.4 MCH 28.9 MCHC 35.5 RDW Std Deviation 41.3 RDW Coeff of Samantha 13.8 Plt Count 225 MPV 8.9 Immature Gran % (Auto) 0.1 Neut % (Auto) 88.2 Lymph % (Auto) 9.8 [place] % (Auto) 1.6 Eos % (Auto) 0.1 Baso % (Auto) 0.2 Immature Gran # (Auto) 0.01 Neut # (Auto) 8.43 H Lymph # (Auto) 0.94 L [place] # (Auto) 0.15 Eos # (Auto) 0.01 Baso # (Auto) 0.02 Sodium Potassium Chloride Carbon Dioxide Anion Gap BUN Creatinine Est Cr Clr Drug Dosing Est GFR ( Amer) Est GFR (Non-Af Amer) BUN/Creatinine Ratio Glucose Calcium Magnesium Hepatitis C Ab Screen Neg Blood Type B Positive Antibody Screen NEGATIVE Crossmatch See Detail 10/23/18 10/24/18 10/24/18 16:00 07:01 07:01 WBC 9.00 RBC 4.68 L Hgb 13.3 L Hct 38.2 L MCV 81.6 MCH 28.4 MCHC 34.8 RDW Std Deviation 41.3 RDW Coeff of Samantha 13.8 Plt Count 214 MPV 9.2 Immature Gran % (Auto) 0.3 Neut % (Auto) 70.9 Lymph % (Auto) 18.3 [place] % (Auto) 10.4 Eos % (Auto) 0.0 Baso % (Auto) 0.1 Immature Gran # (Auto) 0.03 H Neut # (Auto) 6.37 Lymph # (Auto) 1.65 [place] # (Auto) 0.94 H Eos # (Auto) 0.00 Baso # (Auto) 0.01 Sodium 136 139 Potassium 3.8 5.0 D Chloride 105 109 H Carbon Dioxide 24 25 Anion Gap 7.0 6.0 BUN 16 16 Creatinine 1.72 H 1.74 H Est Cr Clr Drug Dosing 43.8 43.1 Est GFR ( Amer) 48.3 47.6 Est GFR (Non-Af Amer) 41.7 41.1 BUN/Creatinine Ratio 9.2 L 9.4 L Glucose 140 H 99 Calcium 8.1 L 8.8 Magnesium 2.0 Hepatitis C Ab Screen Blood Type Antibody Screen Crossmatch 10/25/18 10/25/18 06:02 06:02 WBC 7.86 RBC 4.50 L Hgb 12.8 L Hct 36.8 L MCV 81.8 MCH 28.4 MCHC 34.8 RDW Std Deviation 41.3 RDW Coeff of Samantha 13.8 Plt Count 192 MPV 9.3 Immature Gran % (Auto) 0.4 Neut % (Auto) 62.0 Lymph % (Auto) 25.1 [place] % (Auto) 11.2 Eos % (Auto) 1.0 Baso % (Auto) 0.3 Immature Gran # (Auto) 0.03 H Neut # (Auto) 4.88 Lymph # (Auto) 1.97 [place] # (Auto) 0.88 H Eos # (Auto) 0.08 Baso # (Auto) 0.02 Sodium 142 Potassium 4.1 D Chloride 110 H Carbon Dioxide 26 Anion Gap 6.0 BUN 12 Creatinine 1.47 H Est Cr Clr Drug Dosing 51.1 Est GFR ( Amer) 58.4 Est GFR (Non-Af Amer) 50.4 BUN/Creatinine Ratio 8.2 L Glucose 87 Calcium 8.9 Magnesium Hepatitis C Ab Screen Blood Type Antibody Screen Crossmatch
[2018-10-25] MEDS: AMLODIPINE BESYLATE 5 MG TAB PO SCH (09:22)
[2018-10-25] MEDS: DOCUSATE SODIUM 100 MG CAP PO SCH (09:22)
[2018-10-25] MEDS: TAMSULOSIN HCL 0.4 MG CAP PO SCH (09:22)
[2018-10-25] MEDS: OXYCODONE HCL IR 5 MG TAB (IMMEDIATE RELEASE) PO PRN (09:33)
--- NOTE | 2018-10-25 09:59 | Nephrology Progress Note ---
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 Prior to this surgery the creatinine was around 1.2-1.4. Postoperative day creatinine was 1.7 which stayed stable this morning. Electrolytes acceptable. Has been voiding normally. Currently otherwise asymptomatic, blood pressure and volume status acceptable. Function improved now baseline, creatinine 1.5, electrolyte acceptable. Decent urine output --continue to monitor renal function closely while in hospital --keep well hydrated, avoid volume depletion, and encourage p.o. intake --avoid nephrotoxic medications Will follow Thank you for allowing me to participate in your patient's care. It was a pleasure to see Jimbo (2) Renal mass, right: (3) Solitary right kidney: Subjective Jimbo was seen and examined. POD#2 s/p L robotic partial nephrectomy. Pain controlled with oxycodone and Tylenol. Overall doing well, ambulatory in hallways. Good appetite, tolerating reg diet. Cr 1.5, baseline, great UO. Physical Exam 2 Constitutional: WD/WN, vitals as above Respiratory: normal respiratory effort, lungs clear to auscultation Cardiovascular: RRR, no murmur, no edema Neurologic: moves all extremities and awake Psychiatric: A+Ox3, euthymic affect Results & Data Vital Signs (Past 12 Hours) Vital Signs Temp Pulse Resp BP Pulse Ox 10/25/18 08:06 37.2 C 84 16 160/95 H 95 10/25/18 03:27 37.2 C 79 14 147/90 H 92 10/24/18 23:36 37.1 C 77 14 142/84 H 93
--- NOTE | 2018-11-02 13:01 | Discharge Summary ---
Date of Service November 02, 2018 Admission HPI Per Admitting Provider 63 yo male here for L partial nephrectomy for renal mass in a solitary kidney. His history of contralateral papillary RCC is noted. Please see H&P for further details. Admission Exam (Per Admitting) Constitutional WD/WN, vitals as above Eyes eyes not dysmorphic ENMT Ears: no external ear abnormality Neck trachea midline; no anterior neck swelling Respiratory no respiratory distress and does not use accessory muscles Cardiovascular Vessels: radial pulses present Gastrointestinal (Abdomen) Inspection/Auscultation: abdomen not distended Percussion/Palpation: abdomen soft; abdomen nontender Musculoskeletal Head/Neck/Chest: normocephalic and neck supple Skin normal turgor Neurologic awake; not obtunded Psychiatric Orientation: oriented x 3 Lymphatic no lymphadenopathy Discharge Data Consultations 10/23/18 17:13 Consult Hospitalist Routine Consult Nephrology Routine Procedures Performed Operation Date: 10/23/18 10:50 Actual Procedures p Robotic Assisted Laparoscopic Left Partial Nephrectomy(Left) - Paras Rene MD Hospital Course (1) Left renal mass: Patient tolerated surgery well without complication. See progress notes for further details. Diet and activity were advanced until patient was considered stable for discharge home POD#2. See below. A/P 63 yo male POD#2 s/p L robotic partial nephrectomy. Advance diet, regular diet. Continue ambulate in halls. VSS stable postop, good diuresis, Cr improved to 1.5, close to preop. K improved. Doing quite well. Anticipate DC home later today. Findings and care reviewed with patient who vocalizes good understanding of the treatment plan. Discharge Instructions See DC instruction list.
--- NOTE | 2018-11-06 05:45 | Coding Query ---
PATHOLOGY To promote full compliance with coding requirements relating to patient care, physician participation is requested in all cases of pulping machine operator uncertainty. Please assist us with the question(s) below: Patient has a history of contralateral right renal cell carcinoma. If malignancy, please indicate if new primary or metastatic site. Please review the Pathology report and please document any relevant diagnosis(es) below. Thanks for your help! 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
== END 2018-10-25 14:10 | disposition home or self-care (01) | DRG 687 ==
LOC: ASU 08:48 → 2S 15:40 → 3N 10-24 10:42